=== PATIENT | female | born 1995 | race Two or more races ===

== ENCOUNTER 2023-09-25 09:43 | Outpatient (CLI) | payer OTHER | END 2023-09-26 10:24 | disposition home or self-care (01) | LOC: RAD 09:43 | PROVIDERS: ATTEND Orthopaedic Surgery | DX: S82.62XA Displaced fracture of lateral malleolus of left fibula, initial encounter for closed fracture (principal) ==

== ENCOUNTER 2023-11-18 12:44 | Outpatient (CLI) | payer OTHER | END 2023-11-18 12:46 | disposition home or self-care (01) | LOC: RAD 12:44 | PROVIDERS: ATTEND Orthopaedic Surgery | DX: S82.62XA Displaced fracture of lateral malleolus of left fibula, initial encounter for closed fracture (principal) ==

== ENCOUNTER 2025-06-01 08:08 | Emergency (ER) | payer OTHER ==
[~2025-06-01] VITALS: Ht 180.3 cm; Wt 90.7 kg
[2025-06-01 08:15] VITALS: BP 129/88; O2SAT 98
[2025-06-01] MEDS ORDERED: IPRATROPIUM BROMIDE 0.5 MG/2.5 ML AMPUL.NEB IH STA (09:02)
[2025-06-01] MEDS ORDERED: METHYLPREDNISOLONE SOD SUCC 40 MG VIAL IM STA (09:03)
[2025-06-01] MEDS ORDERED: ALBUTEROL SULFATE 3 ML/2.5 MG AMPUL.NEB IH STA (09:03)
[2025-06-01] MEDS ORDERED: GUAIFENESIN/DEXTROMETHORPHAN 100MG/10ML BLIST.PACK PO STA (09:04)
[2025-06-01 09:50] LABS: BASO % 0.2 % (0.1-1.2); EOS # 0.14 (0.04-0.54); EOS % 2.5 % (0.7-7.0); LYMPH # 1.82 (1.18-3.74); LYMPH % 33.0 % (19.3-53.1); MEAN PLATELET VOLUME 10.00 fl (9.4-12.4); MONO # 0.42 (0.24-0.82); MONO % 7.6 % (4.7-12.5); NEUT # 3.12 (1.56-6.13); NEUT % 56.5 % (34.0-71.1); RED CELL DISTRIBUTION WIDTH 11.2 % (11.6-14.4)
[2025-06-01 10:29] LABS: ALT/SGPT 20.0 U/L (12-78); AST/SGOT 11.0 U/L (15-37); BILIRUBIN TOTAL 0.53 mg/dL (0.3-1.2); BUN CREA RATIO 12.0 (7.0-25.0); CREATININE SERUM 0.77 mg/dL (0.55-1.02); GFR 88.02; GLOBULINA 4.0 G/DL (2.4-3.5); GLUCOSE FASTING 90.0 mg/dL (65-100); OSMOLALITY SERUM 283.0 MOSM/KG (275-295)
[2025-06-01 11:04] LABS: COVID-19 AG NEGATIVE (NEGATIVE)
== END 2025-06-01 12:59 | disposition home or self-care (01) ==
LOC: ER 08:08
PROVIDERS: General Practice
DX: J06.9 Acute upper respiratory infection, unspecified (principal); Z20.822 Contact with and (suspected) exposure to COVID-19